=== PATIENT | female | born 1995 | race Asian ===

== ENCOUNTER 2024-08-03 21:16 | Emergency (ER) | payer OTHER ==
[2024-08-03 21:40] VITALS: BP 109/73; PULSE 80; RESP 16; TEMP 98.1; BMI 19.3
[2024-08-03] MEDS ORDERED: FAMOTIDINE 20 MG TABLET ONE (22:34)
[2024-08-03] MEDS ORDERED: diazePAM 2 MG TABLET ONE (22:34)
[2024-08-03] MEDS ORDERED: predniSONE 20 MG TABLET (UD) ONE (22:34)
[2024-08-03] MEDS: predniSONE 20 MG TABLET (UD) PO ONE (22:40)
[2024-08-03] MEDS: FAMOTIDINE 20 MG TABLET PO ONE (22:41)
[2024-08-03] MEDS: diazePAM 2 MG TABLET PO ONE (22:41)
== END 2024-08-03 22:59 | disposition home or self-care (01) ==
LOC: FER 21:16
DX: M54.50 Low back pain, unspecified (principal); R05.9 Cough, unspecified
CPT/HCPCS: 81003; 81015; 84703; 87086; 99283-25